=== PATIENT | male | born 1995 | race Caucasian/White ===

== ENCOUNTER 2019-10-08 18:29 | Emergency (ER) | payer MEDICAID ==
--- NOTE | 2019-10-08 18:40 | Emergency Department Record ---
History of Present Illness - General Chief complaint: Male Urogenital Problem Stated complaint: STD CHECK Time Seen by Provider: 10/08/19 18:31 Source: Patient Mode of Arrival: Ambulatory Limitations: No limitations - History of Present Illness Initial comments: 23 yo male presents to ED for evaluation of possible STD. Patient reports that his significant other feels that he has been unfaithful, patient reports that he has not however "wants the test to prove it to her". Patient denies dysuria symptoms, rash, fevers, chills, or lesions to the penis/groin region. Patient denies health problems at his baseline. Complaint: Other -: Days(s) Radiation: None Improves with: None Worsens with: None Reports: Denies other symptoms - Related Data Sexually active: Yes Home Medications Medication Instructions Recorded Confirmed Last Taken No Home Med [NO HOME MEDS] 10/08/19 10/08/19 Unknown Allergies Allergy/AdvReac Type Severity Reaction Status Date / Time No Known Drug Allergies Allergy Verified 10/08/19 18:34 Travel Screening - Travel/Exposure Within Last 30 Days Have you traveled within the last 30 days?: No Review of Systems Constitutional: Denies: Chills, Fever, Malaise, Night sweats Eyes: Denies: Eye discharge, Eye pain ENT: Denies: Congestion, Ear pain, Epistaxis Respiratory: Denies: Cough, Dyspnea Cardiovascular: Denies: Chest pain, Dyspnea on exertion Endocrine: Denies: Fatigue, Heat or cold intolerance Gastrointestinal: Denies: Abdominal pain, Nausea, Vomiting Genitourinary: Denies: Dysuria, Hematuria, Incontinence, Testicular pain, Testicular mass Musculoskeletal: Denies: Arthralgia, Back pain Skin: Denies: Bruising, Change in color Neurological: Denies: Abnormal gait, Confusion Psychiatric: Denies: Anxiety Hematological/Lymphatic: Denies: Anemia, Blood Clots Past Medical History - SOCIAL HISTORY Smoking Status: Never smoker Alcohol Use: None Drug Use: None - RESPIRATORY Hx Respiratory Disorders: No - CARDIOVASCULAR Hx Cardio Disorders: No - NEURO Hx Neuro Disorders: No - GI Hx GI Disorders: No - Hx Genitourinary Disorders: No - ENDOCRINE Hx Endocrine Disorders: No - MUSCULOSKELETAL Hx Musculoskeletal Disorders: No - PSYCH Hx Psych Problems: No - HEMATOLOGY/ONCOLOGY Hx Hematology/Oncology Disorders: No Family Medical History Any Significant Family History?: No Physical Exam - General General Appearance: Alert, Oriented x3, Cooperative, No acute distress Limitations: No limitations - Head Head exam: Atraumatic, Normocephalic, Normal inspection Head exam detail: negative: Abrasion, Contusion, Schuster's sign, General tenderness, Hematoma, Laceration - Eye Eye exam: Normal appearance. negative: Conjunctival injection, Periorbital swelling, Periorbital tenderness, Scleral icterus - ENT Ear exam: negative: Auricular hematoma, Auricular trauma Nasal Exam: negative: Active bleeding, Discharge, Dried blood, Foreign body, Sinus tenderness Mouth exam: negative: Drooling, Laceration, Muffled voice, Tongue elevation - Neck Neck exam: Normal inspection. negative: Meningismus, Tenderness - Respiratory Respiratory exam: Normal lung sounds bilaterally. negative: Respiratory distress, Rhonchi, Stridor, Wheezes - Cardiovascular Cardiovascular Exam: Regular rate, Normal rhythm, Normal heart sounds - GI/Abdominal GI/Abdominal exam: Soft. negative: Distended, Rebound, Rigid, Tenderness - Rectal Rectal exam: Deferred - exam: Deferred - Extremities Extremities exam: Normal inspection. negative: Pedal edema, Tenderness - Back Back exam: Denies: CVA tenderness (R), CVA tenderness (L) - Neurological Neurological exam: Alert, Normal gait, Oriented X3 - Psychiatric Psychiatric exam: Normal affect, Normal mood - Skin Skin exam: Normal color. negative: Abrasion Type of lesion: negative: abrasion Course Vital Signs 10/08/19 18:33 Temperature 98.0 F Pulse Rate 66 Respiratory 20 Rate Blood Pressure 132/84 Pulse Ox 97 - Reevaluation(s) Reevaluation #1: 10/08/19 18:43 Patient denies symptoms on examination Will send off urine for Chlamydia and gonorrhea testing Patient appears stable for discharge at this time without receiving prophylactic treatment based on the history provided. Disposition Disposition: Discharge Clinical Impression: Screen for STD (sexually transmitted disease) Disposition: Home, Self-Care Condition: (2) Stable Instructions: Sexually Transmitted Diseases (ED) Additional Instructions: Return to ED if your symptoms worsen or if you have any concerns. Follow-up with your family doctor in 3-5 days as directed. Forms: Patient Portal Access Time of Disposition: 18:40 Quality - Quality Measures Quality Measures: N/A - Blood Pressure Screening Does Patient Have Any of the Following: No Blood Pressure Classification: Pre-Hypertensive BP Reading Systolic Measurement: 132 Diastolic Measurement: 84 Screening for High Blood Pressure: < Pre-Hypertensive BP, F/U Documented > [G8950] Pre-Hypertensive Follow-up Interventions: Referral to alternative/primary care provider.
== END 2019-10-08 19:05 | disposition home or self-care (01) ==
LOC: ER 18:29
DX: Z11.3 Encounter for screening for infections with a predominantly sexual mode of transmission (principal)
CPT/HCPCS: 99283

== ENCOUNTER 2019-11-25 16:39 | Emergency (ER) | payer MEDICAID ==
[2019-11-25] MEDS ORDERED: 0.9 % SODIUM CHLORIDE 1,000 ML BAG IV ONE (17:02)
[2019-11-25] MEDS ORDERED: ONDANSETRON HCL IV 4 MG/2 ML VIAL IVP ONE (17:05)
--- NOTE | 2019-11-25 17:09 | Emergency Department Record ---
History of Present Illness - General Chief Complaint: Abdominal Pain Stated Complaint: ABD,BACK PAIN Time Seen by Provider: 11/25/19 16:57 Source: Patient Mode of Arrival: Ambulatory - History of Present Illness Initial Comments: abdominal pain and vomiting which started yesterday and he has vomited times 10 with one normal BM today and his and family has had vomiting and abd pain and diarrhea. No past surguries. No medical problems no drugs or alcohol no cigs Onset/Timin -: Days(s) Location: Diffuse Radiation: Back Severity: Moderate Severity scale (1-10): 6 Quality: Aching, Cramping Consistency: Constant - Related Data Allergies Allergy/AdvReac Type Severity Reaction Status Date / Time No Known Drug Allergies Allergy Verified 11/25/19 16:46 Travel Screening - Travel/Exposure Within Last 30 Days Have you traveled within the last 30 days?: No - Travel/Exposure Within Last Year Have you traveled outside the [place] in the last year?: No - Additonal Travel Details Have you been exposed to anyone with a communicable illness?: No - Travel Symptoms Symptom Screening: None Review of Systems Reviewed: No additional complaints except as noted below Constitutional: Reports: As per HPI. Denies: Chills, Fever, Malaise, Night sweats, Weakness, Weight change Eyes: Reports: As per HPI. Denies: Eye discharge, Eye pain, Photophobia, Vision change ENT: Reports: As per HPI. Denies: Congestion, Dental pain, Ear pain, Epistaxis, Hearing loss, Throat pain Respiratory: Reports: As per HPI. Denies: Cough, Dyspnea, Hemoptysis, Stridor, Wheezes Cardiovascular: Reports: As per HPI. Denies: Arrhythmia, Chest pain, Dyspnea on exertion, Edema, Murmurs, Orthopnea, Palpitations, Paroxysmal nocturnal dyspnea, Rheumatic Fever, Syncope Endocrine: Reports: As per HPI. Denies: Fatigue, Heat or cold intolerance, Polydipsia, Polyuria Gastrointestinal: Reports: As per HPI, Abdominal pain, Nausea, Vomiting. Denies: Constipation, Diarrhea, Hematemesis, Hematochezia, Melena Genitourinary: Reports: As per HPI. Denies: Dysuria, Frequency, Hematuria, Incontinence, Retention, Testicular pain, Testicular mass, Urgency Musculoskeletal: Reports: As per HPI. Denies: Arthralgia, Back pain, Gout, Joint swelling, Myalgia, Neck pain Skin: Reports: As per HPI. Denies: Bruising, Change in color, Change in hair/nails, Lesions, Pruritus, Rash Neurological: Reports: As per HPI. Denies: Abnormal gait, Confusion, Headache, Numbness, Paresthesias, Seizure, Tingling, Tremors, Vertigo, Weakness Psychiatric: Reports: As per HPI. Denies: Anxiety, Auditory hallucinations, Depression, Homicidal thoughts, Suicidal thoughts, Visual hallucinations Hematological/Lymphatic: Reports: As per HPI. Denies: Anemia, Blood Clots, Easy bleeding, Easy bruising, Swollen glands Past Medical History - SOCIAL HISTORY Smoking Status: Never smoker Alcohol Use: Rare, Occasional Drug Use: None - RESPIRATORY Hx Respiratory Disorders: No - CARDIOVASCULAR Hx Cardio Disorders: No - NEURO Hx Neuro Disorders: No - GI Hx GI Disorders: No - Hx Genitourinary Disorders: No - ENDOCRINE Hx Endocrine Disorders: No - MUSCULOSKELETAL Hx Musculoskeletal Disorders: No - PSYCH Hx Psych Problems: No - HEMATOLOGY/ONCOLOGY Hx Hematology/Oncology Disorders: No Family Medical History Any Significant Family History?: Yes Physical Exam - General General Appearance: Alert, Oriented x3, Cooperative, No acute distress - Head Head exam: Normal inspection - Eye Eye exam: Normal appearance, PERRL Pupils: Normal accommodation - ENT ENT exam: Normal exam, Mucous membranes moist, Normal external ear exam, Normal orophraynx, TM's normal bilaterally Ear exam: Normal external inspection. negative: External canal tenderness Nasal Exam: Normal inspection. negative: Discharge, Sinus tenderness Mouth exam: Normal external inspection, Tongue normal Teeth exam: Normal inspection. negative: Dental caries Throat exam: Normal inspection. negative: Tonsillar erythema, Tonsillar exudate - Neck Neck exam: Normal inspection, Full ROM. negative: Tenderness - Respiratory Respiratory exam: Normal lung sounds bilaterally. negative: Respiratory distress - Cardiovascular Cardiovascular Exam: Regular rate, Normal rhythm, Normal heart sounds - GI/Abdominal GI/Abdominal exam: Soft, Guarding (right upper quad), Hypoactive bowel sounds, Tenderness. negative: Distended, Rebound, Rigid - Rectal Rectal exam: Deferred - exam: Deferred - Extremities Extremities exam: Normal inspection, Full ROM, Normal capillary refill. negative: Tenderness - Back Back exam: Reports: Normal inspection, Full ROM. Denies: Muscle spasm, Rash noted, Tenderness - Neurological Neurological exam: Alert, Normal gait, Oriented X3, Reflexes normal - Psychiatric Psychiatric exam: Normal affect, Normal mood - Skin Skin exam: Dry, Intact, Normal color, Warm Course Vital Signs 11/25/19 16:41 Temperature 97.6 F Pulse Rate 91 H Respiratory 16 Rate Blood Pressure 139/78 Pulse Ox 96 - Reevaluation(s) Reevaluation #1: last time he had any alcohol was Oct 31 2019 11/25/19 18:15 Reevaluation #2: feeling better 11/25/19 18:33 Reevaluation #3: feeling better 11/25/19 18:34 Medical Decision Making - Data Complexity MDM Data: Labs Ordered and/or Reviewed (WBC6,600, lipase 102 elevated), X-Ray Ordered and/or Reviewed (CT scan negative) - Lab Data Result diagrams: 11/25/19 16:55 11/25/19 16:55 Disposition Clinical Impression: Gastroenteritis Abdominal pain Qualifiers: Abdominal location: right upper quadrant Qualified Code(s): R10.11 - Right upper quadrant pain Vomiting Qualifiers: Vomiting type: unspecified Vomiting Intractability: non-intractable Nausea presence: with nausea Qualified Code(s): R11.2 - Nausea with vomiting, unspecified Pancreatitis Qualifiers: Chronicity: acute Pancreatitis type: unspecified pancreatitis type Acute pancreatitis complication: no infection or necrosis Qualified Code(s): K85.90 - Acute pancreatitis without necrosis or infection, unspecified Disposition: Home, Self-Care Condition: (2) Stable Instructions: Pancreatitis (ED), Gastroenteritis (ED) Additional Instructions: follow up with family Dr in 4 days nothing by mouth for 4 hours and than clear liquids for 24 hours than bland foods tylenol or motrin for pain Forms: Patient Portal Access Time of Disposition: 18:33 Quality - Quality Measures Quality Measures: N/A - Blood Pressure Screening Does Patient Have Any of the Following: No Blood Pressure Classification: Pre-Hypertensive BP Reading Systolic Measurement: 139 Diastolic Measurement: 78 Screening for High Blood Pressure: < Pre-Hypertensive BP, F/U Documented > [G8950] Pre-Hypertensive Follow-up Interventions: Referral to alternative/primary care provider.
[2019-11-25 17:26] LABS: ABSOLUTE NEUTROPHIL COUNT 4.86; BASO % 0.5 % (0-6); GRAN % 73.7 % (47-80); HEMATOCRIT 48.9 % (42.0-52.0); HEMOGLOBIN 16.5 gm/dl (14.0-18.0); LYMPH % 14.1 % (16-45); MEAN CELL VOLUME 86.4 fl (81-97); MEAN CORPUSCULAR HEMOGLOBIN 29.2 pg (27-33); MEAN CORPUSCULAR HGB CONC 33.7 g/dl (32-36); MONO % 9.7 % (0-9); PLATELET COUNT 214 K/uL (130-400); RED BLOOD COUNT 5.66 M/uL (4.40-5.70); RED CELL DISTRIBUTION WIDTH 12.7 % (11.5-14.5); WHITE BLOOD COUNT W/O DIFF 6.6 K/uL (4.2-12.2)
[2019-11-25 17:36] LABS: BLOOD UREA NITROGEN 10 mg/dL (6-20); CREATININE 0.9 mg/dL (0.7-1.2); EST GLOMERULAR FILTRATION RATE > 60 mL/min; LIPASE 102 U/L (13-60); TOTAL PROTEIN 7.1 g/dL (6.6-8.7)
[2019-11-25 17:38] LABS: GLUCOSE,RANDOM 116 mg/dL (74-109)
[2019-11-25 17:41] LABS: ALBUMIN 4.3 g/dL (4.0-5.0); ALKALINE PHOSPHATASE 104 U/L (40-129); ALT/SGPT 36 U/L (<41); AST/SGOT 29 U/L (10.0-50.0)
[2019-11-25] MEDS: 0.9 % SODIUM CHLORIDE 1000ML 1,000 ML IV SCH ×2 (17:41→18:16)
[2019-11-25 17:42] LABS: BILIRUBIN,DIRECT < 0.2 mg/dL (0-0.3)
--- NOTE | 2019-11-25 17:48 | CT SCAN REPORT ---
EXAMINATION: ABDOMEN/PELVIS WO CONTRAST EXAM DATE:11/25/2019 5:31 PM TECHNIQUE: Spiral CT images were obtained from the lung bases to the ischial tuberosities without int ravenous contrast. Sagittal and coronal 2-D reformats were made from source images. Oral contrast: N o INDICATION: abd pain right upper quad COMPARISON: None FINDINGS: CT Abdomen: Evaluation of the solid abdominal organs and vascular structures is limited without intr avenous contrast. Liver: The liver is normal in size and morphology. No focal liver lesions. Bile ducts: Normal caliber bile ducts. Gallbladder: No calcified gallstones or other abnormal finding. Pancreas: No focal lesions or peripancreatic inflammation. No dilation of the main pancreatic duct . Spleen: Normal size Adrenals: No mass or other abnormality Kidneys and Ureters: No urinary tract stones or hydronephrosis. No focal renal lesions. GI: The bowel is unremarkable. Normal appendix. Vasculature: Unremarkable. No aneurysmal dilation of the abdominal aorta. Lymph Nodes: No lymphadenopathy. Abdominal Wall: Unremarkable. Peritoneal Cavity: No free intraperitoneal fluid or gas. Retroperitoneum: Unremarkable. Skeletal: Unremarkable. Lung bases: The lung bases are unremarkable. CT Pelvis (In addition to findings described above.): Bladder: The bladder is underdistended, which limits evaluation. Lymph nodes: No lymphadenopathy. IMPRESSION: No urinary tract stones or acute abnormality to explain the patient's abdominal pain. Dictated by: Scott Bender MD on 11/25/2019 5:41 PM. .
[2019-11-25 18:11] LABS: URINE COLOR ORANGE
[2019-11-25] MEDS ORDERED: KETOROLAC 30 MG/ML VIAL IVP ONE (18:11)
[2019-11-25 18:12] LABS: URINE APPEARANCE CLEAR; URINE BILIRUBIN NEGATIVE (NEGATIVE); URINE BLOOD NEGATIVE (NEGATIVE); URINE GLUCOSE (UA) NEGATIVE (NEGATIVE); URINE KETONE NEGATIVE (NEGATIVE); URINE LEUKOCYTE ESTERASE NEGATIVE (NEGATIVE); URINE NITRITE NEGATIVE (NEGATIVE); URINE PROTEIN NEGATIVE (NEGATIVE); URINE UROBILINOGEN 0.2 E.U./dL (0.20 - 1.00)
[2019-11-25] MEDS ORDERED: 0.9 % SODIUM CHLORIDE 1000ML 1,000 ML IV SCH (18:15)
[2019-11-25] MEDS ORDERED: HYDROCODONE/APAP 5/325MG TABLET PO ONE (18:49)
--- NOTE | 2019-11-25 18:50 | Emergency Department Record ---
History of Present Illness - General Chief Complaint: Abdominal Pain Stated Complaint: ABD,BACK PAIN Time Seen by Provider: 11/25/19 16:57 Source: Patient Mode of Arrival: Ambulatory - History of Present Illness Onset/Timin -: Days(s) Location: Diffuse Radiation: Back Severity: Moderate Severity scale (1-10): 6 Quality: Aching, Cramping Consistency: Constant - Related Data Previous Rx's Medication Instructions Recorded Hydrocodone/Acetaminophen [[place] 1 each PO Q6HR #10 tablet 11/25/19 5-325 Tablet] Allergies Allergy/AdvReac Type Severity Reaction Status Date / Time No Known Drug Allergies Allergy Verified 11/25/19 16:46 Travel Screening - Travel/Exposure Within Last 30 Days Have you traveled within the last 30 days?: No - Travel/Exposure Within Last Year Have you traveled outside the [place] in the last year?: No - Additonal Travel Details Have you been exposed to anyone with a communicable illness?: No - Travel Symptoms Symptom Screening: None Review of Systems Constitutional: Reports: As per HPI. Denies: Chills, Fever, Malaise, Night sweats, Weakness, Weight change Eyes: Reports: As per HPI. Denies: Eye discharge, Eye pain, Photophobia, Vision change ENT: Reports: As per HPI. Denies: Congestion, Dental pain, Ear pain, Epistaxis, Hearing loss, Throat pain Respiratory: Reports: As per HPI. Denies: Cough, Dyspnea, Hemoptysis, Stridor, Wheezes Cardiovascular: Reports: As per HPI. Denies: Arrhythmia, Chest pain, Dyspnea on exertion, Edema, Murmurs, Orthopnea, Palpitations, Paroxysmal nocturnal dyspnea, Rheumatic Fever, Syncope Endocrine: Reports: As per HPI. Denies: Fatigue, Heat or cold intolerance, Polydipsia, Polyuria Gastrointestinal: Reports: As per HPI, Abdominal pain, Nausea, Vomiting. Denies: Constipation, Diarrhea, Hematemesis, Hematochezia, Melena Genitourinary: Reports: As per HPI. Denies: Dysuria, Frequency, Hematuria, Incontinence, Retention, Testicular pain, Testicular mass, Urgency Musculoskeletal: Reports: As per HPI. Denies: Arthralgia, Back pain, Gout, Joint swelling, Myalgia, Neck pain Skin: Reports: As per HPI. Denies: Bruising, Change in color, Change in hair/nails, Lesions, Pruritus, Rash Neurological: Reports: As per HPI. Denies: Abnormal gait, Confusion, Headache, Numbness, Paresthesias, Seizure, Tingling, Tremors, Vertigo, Weakness Psychiatric: Reports: As per HPI. Denies: Anxiety, Auditory hallucinations, Depression, Homicidal thoughts, Suicidal thoughts, Visual hallucinations Hematological/Lymphatic: Reports: As per HPI. Denies: Anemia, Blood Clots, Easy bleeding, Easy bruising, Swollen glands Past Medical History - SOCIAL HISTORY Smoking Status: Never smoker Alcohol Use: Rare, Occasional Drug Use: None - RESPIRATORY Hx Respiratory Disorders: No - CARDIOVASCULAR Hx Cardio Disorders: No - NEURO Hx Neuro Disorders: No - GI Hx GI Disorders: No - Hx Genitourinary Disorders: No - ENDOCRINE Hx Endocrine Disorders: No - MUSCULOSKELETAL Hx Musculoskeletal Disorders: No - PSYCH Hx Psych Problems: No - HEMATOLOGY/ONCOLOGY Hx Hematology/Oncology Disorders: No Family Medical History Any Significant Family History?: Yes Course Vital Signs 11/25/19 11/25/19 16:41 18:32 Temperature 97.6 F 98.0 F Pulse Rate 91 H Pulse Rate [ 55 L Pulse Ox Probe] Respiratory 16 16 Rate Blood Pressure 139/78 Blood Pressure 119/72 [Left Arm] Pulse Ox 96 100 Medical Decision Making - Lab Data Result diagrams: 11/25/19 16:55 11/25/19 16:55 Lab Results 11/25/19 11/25/19 11/25/19 Range/Units 16:55 16:55 17:02 WBC 6.6 (4.2-12.2) K/uL RBC 5.66 (4.40-5.70) M/uL Hgb 16.5 (14.0-18.0) gm/dl Hct 48.9 (42.0-52.0) % MCV 86.4 (81-97) fl MCH 29.2 (27-33) pg MCHC 33.7 (32-36) g/dl RDW 12.7 (11.5-14.5) % Plt Count 214 (130-400) K/uL MPV 10.0 (7.4-10.4) fl Gran % 73.7 (47-80) % Lymphocytes % 14.1 L (16-45) % Monocytes % 9.7 H (0-9) % Eosinophils % 2.0 (0-6) % Basophils % 0.5 (0-6) % Absolute Neutrophils 4.86 Sodium 140 (136-145) mmol/L Potassium 3.8 (3.4-4.5) mmol/L Chloride 104 (98-107) mmol/L Carbon Dioxide 24.0 (22-29) mmol/L Anion Gap 12.0 (7-16) BUN 10 (6-20) mg/dL Creatinine 0.9 (0.7-1.2) mg/dL Estimated GFR > 60 mL/min Random Glucose 116 H (74-109) mg/dL Calcium 8.9 (8.6-10.0) mg/dL Total Bilirubin 0.70 (0.2-1.0) mg/dL Direct Bilirubin < 0.2 (0-0.3) mg/dL AST 29 (10.0-50.0) U/L ALT 36 (<41) U/L Alkaline Phosphatase 104 (40-129) U/L Total Protein 7.1 (6.6-8.7) g/dL Albumin 4.3 (4.0-5.0) g/dL Lipase 102 H (13-60) U/L Urine Color [place] H Urine Appearance Clear Urine pH 6.0 (5.0-8.0) Ur Specific [place] 1.030 (1.002-1.030) Urine Protein Negative (NEGATIVE) Urine Glucose (UA) Negative (NEGATIVE) Urine Ketones Negative (NEGATIVE) Urine Blood Negative (NEGATIVE) Urine Nitrite Negative (NEGATIVE) Urine Bilirubin Negative (NEGATIVE) Urine Urobilinogen 0.2 (0.20 - 1.00) E.U./dL Ur Leukocyte Esterase Negative (NEGATIVE) Disposition Clinical Impression: Gastroenteritis Abdominal pain Qualifiers: Abdominal location: right upper quadrant Qualified Code(s): R10.11 - Right upper quadrant pain Vomiting Qualifiers: Vomiting type: unspecified Vomiting Intractability: non-intractable Nausea presence: with nausea Qualified Code(s): R11.2 - Nausea with vomiting, unspecified Pancreatitis Qualifiers: Chronicity: acute Pancreatitis type: unspecified pancreatitis type Acute pancreatitis complication: no infection or necrosis Qualified Code(s): K85.90 - Acute pancreatitis without necrosis or infection, unspecified Disposition: Home, Self-Care Condition: (2) Stable Instructions: Pancreatitis (ED), Gastroenteritis (ED) Additional Instructions: follow up with family Dr in 4 days nothing by mouth for 4 hours and than clear liquids for 24 hours than bland foods tylenol or motrin for pain Prescriptions: Hydrocodone/Acetaminophen [[place] 5-325 Tablet] 1 each PO Q6HR #10 tablet Forms: Patient Portal Access Quality - Quality Measures Quality Measures: N/A - Blood Pressure Screening Does Patient Have Any of the Following: No Blood Pressure Classification: Pre-Hypertensive BP Reading Systolic Measurement: 139 Diastolic Measurement: 78 Screening for High Blood Pressure: < Pre-Hypertensive BP, F/U Documented > [G8950] Pre-Hypertensive Follow-up Interventions: Referral to alternative/primary care provider.
== END 2019-11-25 18:57 | disposition home or self-care (01) ==
LOC: ER 16:39
DX: K85.90 Acute pancreatitis without necrosis or infection, unspecified (principal); K52.9 Noninfective gastroenteritis and colitis, unspecified; R10.11 Right upper quadrant pain; R11.2 Nausea with vomiting, unspecified
CPT/HCPCS: 74176; 80048; 80076; 81003; 83690; 85025; 96361; 96374; 96375; 99284; J1885; J2405; J7030

== ENCOUNTER 2019-12-24 16:25 | Emergency (ER) | payer MEDICAID ==
--- NOTE | 2019-12-24 17:19 | Emergency Department Record ---
History of Present Illness - General Chief complaint: ENT Stated complaint: SORE THROAT,VOMITING,COUGH Time Seen by Provider: 12/24/19 17:19 Source: Patient Mode of Arrival: Ambulatory Limitations: No limitations - History of Present Illness Initial comments: The patient is here with a 2 day hx of cough, ST and vomiting with coughing. He denies any AP, back pain, fever, diarrhea, or sputum production. The patient also has had no SOB, DAMON, or CP. MD complaint: Sore throat, Other Onset/Timin -: Days(s) Associated Symptoms: Cough, Sore throat - Related Data Previous Rx's Medication Instructions Recorded Ondansetron [Zofran Odt] 4 mg SL .Q4-6H PRN #12 tab.rapdis 12/24/19 Allergies Allergy/AdvReac Type Severity Reaction Status Date / Time No Known Drug Allergies Allergy Verified 12/24/19 17:04 Travel/Exposure Screening - Travel/Exposure Within Last 30 Days Have you traveled within the last 30 days?: No - Additonal Travel/Exposure Details Have you been exposed to anyone with a communicable illness?: No Review of Systems Constitutional: Reports: Malaise. Denies: Chills, Fever Eyes: Denies: Eye discharge ENT: Reports: Congestion Respiratory: Reports: Cough. Denies: Dyspnea Past Medical History - SOCIAL HISTORY Smoking Status: Never smoker Alcohol Use: None Drug Use: None - RESPIRATORY Hx Respiratory Disorders: No - CARDIOVASCULAR Hx Cardio Disorders: No - NEURO Hx Neuro Disorders: No - GI Hx GI Disorders: No - Hx Genitourinary Disorders: No - ENDOCRINE Hx Endocrine Disorders: No - MUSCULOSKELETAL Hx Musculoskeletal Disorders: No - PSYCH Hx Psych Problems: No - HEMATOLOGY/ONCOLOGY Hx Hematology/Oncology Disorders: No Family Medical History Any Significant Family History?: No Physical Exam - General General Appearance: Alert, Oriented x3, Cooperative, No acute distress - Head Head exam: Atraumatic, Normocephalic, Normal inspection - Eye Eye exam: Normal appearance, PERRL - ENT Throat exam: Tonsillar erythema (very mild.). negative: Normal inspection, Tonsillomegaly, Tonsillar exudate - Neck Neck exam: Normal inspection, Full ROM. negative: Tenderness - Respiratory Respiratory exam: Normal lung sounds bilaterally. negative: Respiratory distr ess - Cardiovascular Cardiovascular Exam: Regular rate, Normal rhythm, Normal heart sounds - GI/Abdominal GI/Abdominal exam: Soft, Normal bowel sounds. negative: Distended, Guarding, Rebound, Rigid, Tenderness - Extremities Extremities exam: Normal inspection, Full ROM, Normal capillary refill. negative: Tenderness - Neurological Neurological exam: Alert, Normal gait. negative: Abnormal gait, Motor sensory deficit Course Vital Signs 12/24/19 17:02 Temperature 98.7 F Pulse Rate 76 Respiratory 20 Rate Blood Pressure 136/72 Pulse Ox 99 - Reevaluation(s) Reevaluation #1: The patient is doing better after the Zofran and denies any nausea. He is drinking water well with no significant pain or discomfort. I did discuss the fact the tests for the Flu and Strep were neg and also his UA did not demonstrate any dehydration. The patient is to be off work for 2 days and use the Zofran for nausea. He is to see his PCP later this week if not better and to return to the ER for any worsening symptoms. 12/24/19 17:55 Medical Decision Making - Data Complexity MDM Data: Labs Ordered and/or Reviewed (Flu and Strep: Neg. ) - Lab Data Lab Results 12/24/19 Range/Units Unknown Group A Strep Screen Negative (NEGATIVE) Disposition Disposition: Discharge Clinical Impression: Vomiting Qualifiers: Vomiting type: unspecified Vomiting Intractability: non-intractable Nausea presence: with nausea Qualified Code(s): R11.2 - Nausea with vomiting, unspecified Disposition: Home, Self-Care Condition: (2) Stable Instructions: Acute Nausea and Vomiting (ED) Additional Instructions: Please use Tylenol for pain and please use Zofran for nausea. Please see your family doctor later this week for recheck and return to the ER for any worsening issues. Prescriptions: Ondansetron [Zofran Odt] 4 mg SL .Q4-6H PRN #12 tab.rapdis PRN Reason: Nausea Forms: Patient Portal Access Time of Disposition: 18:07 Quality - Quality Measures Quality Measures: N/A - Blood Pressure Screening View Details: Yes Does Patient Have Any of the Following: No Blood Pressure Classification: Pre-Hypertensive BP Reading Systolic Measurement: 136 Diastolic Measurement: 72 Screening for High Blood Pressure: < Pre-Hypertensive BP, F/U Documented > [[id number]] Pre-Hypertensive Follow-up Interventions: Referral to alternative/primary care provider.
[2019-12-24 17:25] LABS: INFLUENZA A NEGATIVE (NEGATIVE); INFLUENZA B NEGATIVE (NEGATIVE)
[2019-12-24 17:41] LABS: URINE APPEARANCE CLEAR; URINE BILIRUBIN NEGATIVE (NEGATIVE); URINE BLOOD NEGATIVE (NEGATIVE); URINE COLOR YELLOW; URINE GLUCOSE (UA) NEGATIVE (NEGATIVE); URINE KETONE NEGATIVE (NEGATIVE); URINE LEUKOCYTE ESTERASE NEGATIVE (NEGATIVE); URINE NITRITE NEGATIVE (NEGATIVE); URINE PROTEIN NEGATIVE (NEGATIVE); URINE UROBILINOGEN 0.2 E.U./dL (0.20 - 1.00)
[2019-12-24] MEDS ORDERED: ONDANSETRON 4 MG ODT TABLET SL ONE (17:42)
== END 2019-12-24 18:33 | disposition home or self-care (01) ==
LOC: ER 16:25
DX: R11.2 Nausea with vomiting, unspecified (principal); R05 Cough; J02.9 Acute pharyngitis, unspecified
CPT/HCPCS: 81003; 87400; 87880; 99283